=== PATIENT | female | born 1985 | race Caucasian/White ===

== ENCOUNTER 2017-07-22 20:06 | Emergency (ER) | payer OTHER, MEDICAID ==
[~2017-07-22] VITALS: Ht 157.5 cm; Wt 44.0 kg
[~2017-07-22 20:06] MED LIST: PRENATAL PO
[2017-07-22] MEDS ORDERED: ALPRAZOLAM 0.0.25 MG PO (20:12)
[2017-07-22] MEDS ORDERED: SUBOXONE 12 MG1 EACH (20:12)
[2017-07-22 20:35] LABS: ABSOLUTE BASOPHILS 0.1 thou/uL (0.0-0.2); ABSOLUTE EOSINOPHILS 0.4 thou/uL (0.0-0.7); ABSOLUTE LYMPHOCYTES 4.7 thou/uL (0.8-5.3); ABSOLUTE MONOCYTES 0.8 thou/uL (0.0-1.2); ABSOLUTE NEUTROPHILS 5.7 thou/uL (1.6-8.1); BASOPHILS 0.6 %; EOSINOPHILS 3.5 %; HEMATOCRIT 41.3 % (37.0-47.0); LYMPHOCYTES 40.2 %; MCH 32.1 pg (26.0-34.0); MCHC 33.8 g/dL (28.0-37.0); MCV 94.8 fL (80.0-100.0); MONOCYTES 7.2 %; NUCLEATED RBCS 0 /100WBC; PLATELET COUNT* 228 thou/uL (150-400); POLYS 48.5 %; RBC 4.36 mil/uL (4.20-5.00); RDW-CV 13.6 % (10.5-14.5); WBC 11.7 thou/uL (4.0-11.0)
[2017-07-22 20:42] LABS: ANION GAP 7 mmol/L (7-16); BUN 14 mg/dL (7-18); CALCIUM 8.9 mg/dL (8.5-10.1); CHLORIDE 107 mmol/L (98-107); CO2 29 mmol/L (21-32); CREATININE 0.8 mg/dL (0.6-1.3); GLUCOSE 97 mg/dL (70-99); POTASSIUM 3.5 mmol/L (3.5-5.1); SODIUM 143 mmol/L (136-145)
[2017-07-22 20:54] LABS: ALBUMIN 4.4 g/dL (3.4-5.0); ALKALINE PHOSPHATASE 51 U/L (46-116); LIPASE 104 U/L (73-393); MAGNESIUM 1.9 mg/dL (1.8-2.4); NT-PRO BRAIN NAT PEPTIDE 26 pg/mL (<300); SGOT 18 U/L (15-37); SGPT 19 U/L (30-65); TOTAL BILIRUBIN 0.2 mg/dL (<0.1-1.0); TOTAL PROTEIN 7.2 g/dL (6.4-8.2); TROPONIN-I LEVEL <0.06 ng/mL (<0.06)
[2017-07-22 23:42] VITALS: BP 111/71
--- NOTE | 2017-07-23 16:31 | EKG ---
[place] [address] ELECTROCARDIOGRAM REPORT Name: LIAM MCKEON Room: [facility]#: [id number] Admission: 07/22/17 Attend Phys: Discharge: 07/23/17 Date of : 87 Report #: [id number] THIS REPORT FOR: //name// [facility] ED Test Date: 2017-07-22 Test Time: 20:11:56 Pat Name: LIAM MCKEON Department: Room: Gender: F Systems Architect: MOSHE Boss : 1985 Requested By: Mateo Holt Order Number: [id number] MD: Valdez Luciano Measurements Intervals [place] Rate: 95 P: 67 [place]: 130 QRS: 94 QRSD: 95 T: 21 QT: 356 QTc: 448 Interpretive Statements Sinus rhythm Borderline right axis deviation Minimal ST depression, inferior leads Baseline wander in lead(s) II,aVF,V2 No previous ECG available for comparison Electronically Signed On 07-23-2017 16:31:16 MUSIC ARTIST by Valdez Luciano [email or web address] <ELECTRONICALLY SIGNED> By: Valdez Luciano MD, [facility] 07/23/17 1631 10 10 Valdez Luciano MD, FACC /EPI
--- NOTE | 2017-07-24 17:35 | EKG ---
[place] [address] ELECTROCARDIOGRAM REPORT Name: LIAM MCKEON Room: [facility]#: [id number] Admission: 07/22/17 Attend Phys: Discharge: 07/23/17 Date of : 87 Report #: [id number] THIS REPORT FOR: //name// [facility] ED Test Date: 2017-07-22 Test Time: 23:09:48 Pat Name: LIAM MCKEON Department: Room: Gender: F Box Shook Patcher: SALVADOR : 1985 Requested By: Mateo Holt Order Number: [id number] MD: Joe Reynoso Measurements Intervals [place] Rate: 71 P: 32 VA: 133 QRS: 84 QRSD: 95 T: 14 QT: 391 QTc: 425 Interpretive Statements Sinus rhythm RSR' in V1 or V2, probably normal variant No previous ECG available for comparison Electronically Signed On 07-24-2017 17:35:35 POUNCER MACHINE by Joe Reynoso [email or web address] <ELECTRONICALLY SIGNED> By: Joe Reynoso MD, [facility] 07/24/17 1735 2309 [id number] Joe Reynoso MD, FACC /EPI
== END 2017-07-23 00:05 | disposition home or self-care (01) ==
LOC: M.ERS 20:06
PROVIDERS: Emergency Medicine Emergency Medical Services
DX: R07.89 Other chest pain (principal); F17.210 Nicotine dependence, cigarettes, uncomplicated; Z98.890 Other specified postprocedural states

== ENCOUNTER → 2017-08-01 | Outpatient (CLI) | payer OTHER, MEDICAID ==
[~2017-08-01] MED LIST changes: +ALPRAZOLAM 0.0.25 MG PO; +SUBOXONE 12 MG1 EACH
[2017-08-01 10:48] LABS: CHOLESTEROL 126 mg/dL (<200); HDL CHOLESTEROL 51 mg/dL (>40); LDL CHOLESTEROL 71 mg/dL (<100); TC:HDL 2.5 Ratio (Not establshd); TRIGLYCERIDE 20 mg/dL (<150); VLDL 4 mg/dL (<40)
[2017-08-01 10:50] LABS: SERUM ASSESSMENT Clear
--- NOTE | 2017-08-01 15:47 | EXE ---
[place] [address] STRESS ECHOCARDIOGRAM Name: LIAM MCKEON Room: [facility]#: [id number] Admission: 08/01/17 Attend Phys: Joe Reynoso, Discharge: Date of : 87 Date of Service: 08/01/17 1547 Report #: [id number] THIS REPORT FOR: //name// APPROVED REPORT Exam: Stress Echocardiogram Indication: Chest pain Patient Location: Out-Patient Stress Nurse: Bisi Anand RN Supervising Physician: Siddharth Richardson MD Ht: 5 ft 2 in HR: 68 bpm BP: 116/77 mmHg Medical History Cardiac Risk Factors: Tobacco History (Current/Recent), FHX of CAD Procedure The patient underwent an Exercise Stress Test using the Archie Protocol. Blood pressure, heart rate, and EKG were monitored. An Echocardiogram was performed by optical technician in four stages in quad fashion. At peak stress, four selected images were obtained and placed side by side with resting images for comparison. Stress Test Details Stress Test: Exercise stress testing was performed using a Archie protocol. HR Resting HR: 68 bpm Max Heart Rate (APMHR): 189 bpm Max HR Achieved: 174 bpm Target HR (85% APMHR): 160 bpm % of APMHR: 92 Recovery HR: 90 bpm HR response to stress: Normal HR response to stress BP Resting BP: 116/77 mmHg Max BP: 173/81 mmHg Recovery BP: 138/68 mmHg ECG Resting ECG: Sinus Rhythm Stress ECG: Sinus Tachycardia Maximum ST Deviation: 0 mm Recovery ECG: [place] [address] STRESS ECHOCARDIOGRAM Name: LIAM MCKEON Room: [facility]#: [id number] Admission: 08/01/17 Attend Phys: Joe Reynoso, Discharge: Date of : 87 Date of Service: 08/01/17 1547 Report #: [id number] Recovery ST Deviation: 0 mm Clinical Reason for Termination: Completed protocol, Maximal effort Exercise duration: 9 min 19 sec Highest Stage Achieved: Stage 3: 3.4 mph at 14% grade. Exercise capacity: 10.66 METs Pre-Stress Echo The resting Echocardiogram showed normal left ventricular contractility with an estimated Ejection Fraction of about 60-65%. Post-Stress Echo The stress Echocardiogram showed normal left ventricular contractility with an estimated Ejection Fraction of about >70%. Conclusion Clinical Response: Non-ischemic Exercise Capacity: Average Stress ECG Response: Non-ischemic Stress Echo Images: Non-ischemic low risk stress echo for future cardiac events Other Information Study Quality: Good <Conclusion> low risk stress echo for future cardiac events <ELECTRONICALLY SIGNED> By: Siddharth Richardson MD, FACC 08/01/17 1547 1547 1547 Siddharth Richardson MD, FACC /INF
== END ==
LOC: M.CRD 07-31 11:00
PROVIDERS: Internal Medicine Cardiovascular Disease
DX: R07.2 Precordial pain (principal); R07.89 Other chest pain; Z82.49 Family history of ischemic heart disease and other diseases of the circulatory system

== ENCOUNTER 2018-06-22 19:19 | Inpatient (IN) | payer OTHER ==
[~2018-06-22] VITALS: Ht 157.5 cm; Wt 58.1 kg
[2018-06-22 19:21] VITALS: BP 115/74
[2018-06-22 19:37] LABS: URINE BILIRUBIN NEGATIVE (Negative); URINE BLOOD 2+ (Negative); URINE CLARITY CLEAR; URINE COLOR YELLOW; URINE GLUCOSE-RANDOM NEGATIVE (Negative); URINE KETONES TRACE (Negative); URINE LEUKOCYTES-REFLEX TRACE (Negative); URINE NITRITE-REFLEX NEGATIVE (Negative); URINE PROTEIN NEGATIVE (Negative); URINE SPECIFIC GRAVITY 1.025 (1.005-1.030); URINE UROBILINOGEN 0.2 E.U./dl (0.2-1.0)
[2018-06-22] MEDS ORDERED: BIRTH CONTROL (19:38)
[2018-06-22 19:39] LABS: BACTERIA-REFLEX None Seen /HPF (None Seen); CASTS None Seen /LPF (None Seen); CRYSTALS None Seen /LPF (None Seen); SQUAMOUS 4-10 Moderate /LPF (0-3); URINE RBC 0-2 Rare /HPF (0-2); URINE WBC-REFLEX None Seen /HPF (0-5)
[2018-06-22 19:46] LABS: AMP/METHAMP Negative (Negative); BARBITURATES Negative (Negative); BENZODIAZEPINES POSITIVE (Negative); COCAINE Negative (Negative); METHADONE Negative (Negative); OPIATES Negative (Negative); PCP Negative (Negative); THC Negative (Negative)
[2018-06-22 19:51] LABS: ABSOLUTE BASOPHILS 0.1 thou/uL (0.0-0.2); ABSOLUTE EOSINOPHILS 0.1 thou/uL (0.0-0.7); ABSOLUTE LYMPHOCYTES 3.2 thou/uL (0.8-5.3); ABSOLUTE MONOCYTES 0.5 thou/uL (0.0-1.2); ABSOLUTE NEUTROPHILS 4.3 thou/uL (1.6-8.1); BASOPHILS 0.7 %; EOSINOPHILS 1.5 %; HEMOGLOBIN 12.3 gm/dL (12.0-15.0); LYMPHOCYTES 38.9 %; MCH 31.4 pg (26.0-34.0); MCHC 33.3 g/dL (28.0-37.0); MCV 94.2 fL (80.0-100.0); MONOCYTES 6.4 %; MPV 8.1 fl. (7.2-11.1); NUCLEATED RBCS 0 /100WBC; PLATELET COUNT* 263 thou/uL (150-400); POLYS 52.5 %; RBC 3.92 mil/uL (4.20-5.00); WBC 8.2 thou/uL (4.0-11.0)
[2018-06-22 19:58] LABS: CALCIUM 7.5 mg/dL (8.5-10.1); CREATININE 0.7 mg/dL (0.6-1.3); POTASSIUM 3.4 mmol/L (3.5-5.1)
[2018-06-22 20:03] LABS: ALBUMIN 3.5 g/dL (3.4-5.0); TOTAL BILIRUBIN 0.4 mg/dL (<0.1-1.0); TOTAL PROTEIN 6.4 g/dL (6.4-8.2)
--- NOTE | 2018-06-22 22:00 | NUR ---
THIS NURSE WAS CALLED TO PT ROOM FOR A SEIZURE. DR. BATISTA ALSO CALLED TO BEDSIDE. PT HAVING JERKING MOVEMENTS OF HER BODY FOR APPROXIMATELY 60 SECONDS. IV ATIVAN GIVEN TO PT ORDERED BY PHYSICIAN.
[2018-06-22 23:45] VITALS: BP 103/57
[2018-06-23 00:03] VITALS: BP 103/57
--- NOTE | 2018-06-23 01:29 | NUR ---
ASSUMED CARE OF PT AT 2355. PT IS ALERT AND ORIENTED. VSS. PERRLA. NO SEIZURES SINCE PT ARRIVED TO UNIT. PT IS IN SINUS RYTHM ON THE TELEMETRY. PT IS RESTING COMFORTABLY IN BED. RESPIRATIONS ARE EVEN AND NONLABORED. WILL CONTINUE TO MONITOR PT.
[2018-06-23 04:00] VITALS: BP 92/56
[2018-06-23 08:00] VITALS: BP 106/66
[2018-06-23] MEDS ORDERED: RECLIPSEN1 EACH PO (10:10)
[2018-06-23 11:43] VITALS: BP 93/56
--- NOTE | 2018-06-23 13:00 | EKG ---
[place] [address] ELECTROCARDIOGRAM REPORT Name: LIAM MCKEON Room: [address] ADM IN M.R.#: [id number] Admission: 06/22/18 Attend Phys: Syed Burris, Discharge: Date of : 87 Report #: [id number] THIS REPORT FOR: //name// [facility] ED Test Date: 2018-06-22 Test Time: 19:30:19 Pat Name: LIAM MCKEON Department: Room: [address] Gender: F Technical Assistant: Ryan FLORENCE : 1985 Requested By: Lesli Romero Order Number: [id number] MD: John Gonsalez Measurements Intervals [place] Rate: 86 P: 67 AZ: 135 QRS: 79 QRSD: 94 T: 18 QT: 378 QTc: 452 Interpretive Statements Sinus rhythm Borderline low voltage, extremity leads Compared to ECG 07/22/2017 23:09:48 No significant changes Electronically Signed On 06-23-2018 12:59:53 MULTIPLE DRILL OPERATOR by John Gonsalez [email or web address] <ELECTRONICALLY SIGNED> By: John Gonsalez MD, FACC 06/23/18 1259 29 29 John Gonsalez MD, FAC /EPI
[2018-06-23 16:07] VITALS: BP 91/54
[2018-06-23 20:00] VITALS: BP 129/67
[2018-06-24] VITALS: BP 103/63
[2018-06-24 04:00] VITALS: BP 115/52
[2018-06-24 04:48] LABS: HEMATOCRIT 30.8 % (37.0-47.0); HEMOGLOBIN 10.4 gm/dL (12.0-15.0); MCH 32.3 pg (26.0-34.0); MCHC 33.8 g/dL (28.0-37.0); MCV 95.4 fL (80.0-100.0); MPV 8.5 fl. (7.2-11.1); RBC 3.23 mil/uL (4.20-5.00); RDW-CV 13.3 % (10.5-14.5); WBC 8.4 thou/uL (4.0-11.0)
--- NOTE | 2018-06-24 05:05 | NUR ---
ASSUMED CARE OF PT AFTER REPORT AT 1930. PT A&OX4. FORGETFUL AT TIMES. VSS. PHYSICAL ASSESSMENT COMPLETED AND CHARTED. PT ON RA WITH 99% O2 SAT. PT TRACING SR ON TELE. PT UP STANDBY TO RESTROOM. DENIES ANY PAIN OR DISCOMFORT. SEIZURE PRECAUTIONS OBSERVED. HOURLY ROUNDING OBSERVED. CALL LIGHT WITHIN REACH. BED IN LOW POSITION. BED ALARM ON.
[2018-06-24 05:14] LABS: ALBUMIN 2.6 g/dL (3.4-5.0); CALCIUM 7.2 mg/dL (8.5-10.1); CREATININE 0.6 mg/dL (0.6-1.3); MAGNESIUM 1.8 mg/dL (1.8-2.4); POTASSIUM 3.6 mmol/L (3.5-5.1); TOTAL BILIRUBIN 0.2 mg/dL (<0.1-1.0); TOTAL PROTEIN 4.8 g/dL (6.4-8.2)
[2018-06-24 08:00] VITALS: BP 113/66
--- NOTE | 2018-06-24 11:18 | NUR ---
MET WITH PT AND SPOUSE/SAMANTHA TO DISCUSS HOME SITUATION/DC PLANNING. PT LIVES WITH SPOUSE AND 3 CHILDREN. SHE IS NORMALLY INDEPENDENT AND ACTIVE. REPORTS THIS IS HER FIRST SEIZURE. DID STATE THAT HER 5Y/O HAS SEIZURES SO THEY ARE FAMILIAR WITH THEM. PT STATES SHE WILL LOSE HER INSURANCE THE END OF THE MONTH. GAVE RESOURCES AND DISCUSSED F/U WITH [facility]. DENIES OTHER DC NEEDS.
[2018-06-24 12:00] VITALS: BP 104/47
[2018-06-24] MEDS ORDERED: KEPPRA 500 MG500 M1 PO (12:00)
[2018-06-24 12:30] VITALS: BP 113/66
--- NOTE | 2018-06-24 13:21 | NUR ---
ASSUMED PT CARE AT 0730, FULL ASSESMENT DONE CHARTED.PT A/O X4, UP SBA, SEIZURE PRECAUTIONS IN PLACE. PT DENIES PAIN, VSS, SR ON THE MONITOR. RECIEVED DISCHARGE ORDERS, MRI DONE, RESULTS REVIEWED. PT SENT WITH KEPPRA SCRIPT, EDUCATED ON NO DRIVING FOR 6 MONTHS, PT VERBALIZED UNDERSTANDING OF EDUCATION. LEFT UNIT AT APPROX 1300
--- NOTE | 2018-06-25 14:49 | EEG ---
[address] [address] EEG STUDY REPORT Name: LINDALIAM WAY Room: [address]#: [id number] Admission: 06/22/18 Attend Phys: Syed Burris, Discharge: 06/24/18 Date of : [birth year] Report #: [id number] THIS REPORT FOR: //name// CC: [facility] physician/PCP Syed Burris DATE OF SERVICE: 06/22/2018 This patient is being evaluated for seizure disorder. EEG was done by placing the electrode by standard 10-20 system of electrode placement. Both referential and sequential montages were used for recording. Background activity in this patient's EEG is about 9 Hz and 30 microvolt. Photic stimulation induced what looks like a seizure. Even in the baseline. The patient's EEG continued to demonstrate repeated spike and slow wave activity. IMPRESSION: Multiple episodes of generalized spike and slow wave activity consistent with a diagnosis of seizure. Thank you very much for this referral. <ELECTRONICALLY SIGNED> By: Brenton Hoskins MD 06/25/18 1449 1101 [id number] Hoskins MD /nt
--- NOTE | 2018-06-25 14:49 | CON ---
[facility] [address] [place] [address] CONSULTATION Name: LIAM MCKEON Room: [address] IN M.R.#: [id number] Admission: 06/22/18 Attend Phys: Syed Burris, Discharge: 06/24/18 Date of : 87 Report #: [id number] THIS REPORT FOR: //name// CC: [facility] physician/PCP Syed Burris DATE OF SERVICE: 06/23/2018 HISTORY OF PRESENT ILLNESS: This is a 33-year-old female patient who was admitted with 2 episodes of generalized grand mal seizure. She never had seizures before. First seizure was when she was sitting on the couch at home, and she became stiff and started having generalized grand mal activity. She was foaming at mouth. She had a postictal period after that. She indicates that she had trouble with the leg, and she was taking some pain medication. She still goes to pain management. She also takes Xanax, but she indicates none of these has been changed recently and in fact she had no change in her dosages from at least last 2 months. REVIEW OF SYSTEMS: Indicates she does have a family history of seizures. She had a prior history of tubal ligation. She had a hernia repair. She is on Xanax. She is on buprenorphine. She indicated that she used to take pain medication, but has not done it for a year or so. She is pretty reluctant to come forward with that history. She had multiple members of the family in the room, and she wanted them to be in the room when she was seen. PAST MEDICAL HISTORY: Negative for seizure. FAMILY HISTORY: Positive for epilepsy. SOCIAL HISTORY: She smokes. She said she does not drink any alcohol. PHYSICAL EXAMINATION: Indicates she is alert, responsive, able to follow simple and complex commands. Her speech, concentration, fund of knowledge and memory are at her baseline. Cranial nerve examination 2-12 looks unremarkable. She has no cerebellar sign. Strength, sensation, reflexes and tone are symmetrical. There is no papilledema. There is no carotid bruit. There is no thyroid mass. She is thinly built individual. She does not have any dysmorphic features of eyes, ears and face. Her vision and hearing look adequate. Pulses are palpable. Her blood pressure is 93/56, pulse is 70, temperature is 98.2. LABORATORY DATA: Indicates a normal white count. Her potassium was trace low, calcium is trace low. Magnesium is normal. TSH is normal. test was negative, but she had a tubal ligation. She did have a CT scan of the head, [place] [address] CONSULTATION Name: LIAM MCKEON Room: [address] IN M.R.#: [id number] Admission: 06/22/18 Attend Phys: Syed Burris, Discharge: 06/24/18 Date of : 87 Report #: [id number] IMPRESSION: Generalized seizures. Both the EEG and clinical history indicated there is a generalized seizure. RECOMMENDATIONS: 1. I asked her to talk to her pain management about the medication she is taking for the pain. 2. Since she had at least two seizures and EEG is abnormal, she will be high risk for reoccurrence, so she is on Keppra, which we will continue. 3. We will do an MRI in this patient to complete the workup. Thank you very much for this referral and if you have any question, please feel free to contact me. <ELECTRONICALLY SIGNED> By: Brenton Hoskins MD 06/25/18 1449 1146 1325Brenton Hoskins MD /nt
== END 2018-06-24 13:03 | disposition home or self-care (01) | DRG 101 ==
LOC: M.ERS 19:19 → M.2W 22:36 → M.TBA-ER 22:36 → M.2W 23:13
PROVIDERS: Personal Emergency Response Attendant; ADMIT Family Medicine
DX: G40.409 Other generalized epilepsy and epileptic syndromes, not intractable, without status epilepticus (principal); F17.210 Nicotine dependence, cigarettes, uncomplicated; Z79.899 Other long term (current) drug therapy; Z82.0 Family history of epilepsy and other diseases of the nervous system

== ENCOUNTER 2018-09-29 11:23 | Emergency (ER) | payer OTHER ==
[~2018-09-29] VITALS: Ht 157.5 cm; Wt 49.9 kg
[~2018-09-29 11:23] MED LIST changes: +BIRTH CONTROL; +KEPPRA 500 MG500 M1 PO; +RECLIPSEN1 EACH PO
[2018-09-29 12:07] LABS: ABSOLUTE BASOPHILS 0.1 thou/uL (0.0-0.2); ABSOLUTE EOSINOPHILS 0.1 thou/uL (0.0-0.7); ABSOLUTE LYMPHOCYTES 2.2 thou/uL (0.8-5.3); ABSOLUTE MONOCYTES 0.8 thou/uL (0.0-1.2); ABSOLUTE NEUTROPHILS 6.5 thou/uL (1.6-8.1); BASOPHILS 0.7 %; EOSINOPHILS 0.6 %; HEMATOCRIT 38.9 % (37.0-47.0); HEMOGLOBIN 13.4 gm/dL (12.0-15.0); LYMPHOCYTES 22.4 %; MCH 31.9 pg (26.0-34.0); MCHC 34.5 g/dL (28.0-37.0); MCV 92.5 fL (80.0-100.0); MONOCYTES 8.8 %; MPV 8.1 fl. (7.2-11.1); NUCLEATED RBCS 0 /100WBC; PLATELET COUNT* 299 thou/uL (150-400); POLYS 67.5 %; RBC 4.21 mil/uL (4.20-5.00); WBC 9.6 thou/uL (4.0-11.0)
[2018-09-29 12:17] LABS: URINE BILIRUBIN NEGATIVE (Negative); URINE BLOOD 3+ (Negative); URINE CLARITY CLEAR; URINE COLOR YELLOW; URINE GLUCOSE-RANDOM NEGATIVE (Negative); URINE KETONES NEGATIVE (Negative); URINE LEUKOCYTES-REFLEX NEGATIVE (Negative); URINE NITRITE-REFLEX NEGATIVE (Negative); URINE PROTEIN NEGATIVE (Negative); URINE SPECIFIC GRAVITY <= 1.005 (1.005-1.030); URINE UROBILINOGEN 0.2 E.U./dl (0.2-1.0)
[2018-09-29 12:22] LABS: ALBUMIN 2.9 g/dL (3.4-5.0); CALCIUM 8.8 mg/dL (8.5-10.1); CREATININE 0.8 mg/dL (0.6-1.3); POTASSIUM 3.4 mmol/L (3.5-5.1); TOTAL BILIRUBIN 0.3 mg/dL (<0.1-1.0); TOTAL PROTEIN 7.4 g/dL (6.4-8.2)
[2018-09-29 12:25] LABS: SQUAMOUS 0-3 Few /LPF (0-3)
[2018-09-29 12:26] LABS: URINE WBC-REFLEX 0-5 Rare /HPF (0-5)
[2018-09-29 12:27] LABS: BACTERIA-REFLEX 1-9 Few /HPF (None Seen); CASTS None Seen /LPF (None Seen); CRYSTALS None Seen /LPF (None Seen); MUCUS 0-3 Light strn/LPF (None Seen); URINE RBC 3-10 Few /HPF (0-2); YEAST-REFLEX Present (None Seen)
[2018-09-29] MEDS ORDERED: VITAMIN B-6100 MG PO (13:02)
[2018-09-29 15:02] VITALS: BP 106/61
== END 2018-09-29 15:02 | disposition home or self-care (01) ==
LOC: M.ERS 11:23
PROVIDERS: Nurse Practitioner Family
DX: R10.31 Right lower quadrant pain (principal); R10.32 Left lower quadrant pain; F17.210 Nicotine dependence, cigarettes, uncomplicated; Z98.890 Other specified postprocedural states